=== PATIENT | female | born 1950 | race Caucasian/White ===

== ENCOUNTER → 2017-01-24 | Day surgery (SDC) | payer OTHER ==
[~2017-01-24] MED LIST: ACETAMINOPHEN/HYDROcodone 325 MG/5 MG TAB ONE; ASPI81 CHEW; BUPIVACAINE/EPINEPHRINE 0.5% PF 10 ML VIAL ONE; LACTATED RINGER'S 1000 ML INJ 1,000 ML ONE; LIPI20TA OR; MIDAZOLAM HCL 2 MG/2 ML VIAL ONE; ONDANSETRON HCL 4 MG/2 ML VIAL IV PUSH ONE; PROPOFOL 200 MG/20 ML AMP IV ONE; VITA400C28 PO; VITA500T49 PO; ceFAZolin INJ 1,000 MG VIAL ONE
--- NOTE | 2017-01-24 17:01 | TN ---
cc: KELLEY HOOK DATE OF SURGERY: 01/24/2017. PREOPERATIVE DIAGNOSIS: 1. Internal derangement of the left knee. 2. Probable medial meniscus tear left knee. 3. Possible loose body left knee. POSTOPERATIVE DIAGNOSIS: 1. Loose body left knee. 2. Complex tear posterior medial meniscus. 3. Osteoarthritis left knee. OPERATIVE PROCEDURE PERFORMED: 1. Arthroscopy of the left knee. 2. Arthroscopic medial meniscectomy. 3. Abrasion chondroplasty. 4. Removal of loose bodies. SURGEON: Kelley Hook MD. ANESTHESIA: General. ESTIMATED BLOOD LOSS Minimal. INDICATIONS FOR THE PROCEDURE: This is a 66-year-old female with catching, locking and pain predominantly in the medial aspect of her left knee. Investigative studies show evidence of a torn medial meniscus and were suspicious for a loose body. The patient presents for surgical treatment. DESCRIPTION OF THE PROCEDURE IN DETAIL: The patient was brought to the operating room and anesthetized in supine position. The left leg was scrubbed with alcohol followed by Hibiclens followed Chloraprep and draped sterilely. Antibiotics were given within a one hour time window. A time-out was done. Inflow was established anterior and laterally. The suprapatellar pouch showed a loose piece of articular cartilage floating. A small stab incision was made laterally cephalad. The meniscal debrider was used remove this completely. The retropatellar surface showed minimal changes. The medial compartment showed grade 2 and 3 with a small area of grade 4 change on the medial femoral condyle. The medial tibial plateau showed grade 1 changes predominately. The medial meniscus had a complex tear starting at the nine o'clock position and extending to the posterior horn. There was a horizontal cleavage tear but there was significant loose edges. There was calcification likely consistent with chondrocalcinosis. The ACL footprint was normal. The lateral compartment was normal. A spinal needle was introduced along the medial joint line. A separate incision was made. Straight and angled punches were used to take the meniscus back to a stable rim from the eight o'clock position to the posterior horn. A portion of the meniscus was left and we did not debride it all the way back to the root. The meniscal debrider was used to debride the articular cartilage. No additional loose bodies were seen. The wound was irrigated copiously. The portals were injected with 0.5% Marcaine followed by Steri-Strips and Benzoin. A sterile dressing was applied. The patient was awakened and taken to the recovery room in satisfactory condition. MD GALE Adames/MEGHAN /3:47 PM /4:55 PM
== END | disposition home or self-care (01) ==
LOC: ESDC 12:35
PROVIDERS: ATTEND Orthopaedic Surgery Orthopaedic Surgery of the Spine
DX: S83.232A Complex tear of medial meniscus, current injury, left knee, initial encounter (principal); M17.12 Unilateral primary osteoarthritis, left knee
CPT/HCPCS: 01400; 29881; J0690; J2250; J2405; J3010; J7120